=== PATIENT | female | born 1940 | race Caucasian/White ===

== ENCOUNTER 2017-07-21 14:29 | Outpatient (CLI) | payer OTHER | END 2017-07-21 19:55 | disposition home or self-care (01) | LOC: SMA 14:29 | PROVIDERS: ATTEND Family Medicine | DX: Z12.31 Encounter for screening mammogram for malignant neoplasm of breast (principal) | CPT/HCPCS: 77067 ==

== ENCOUNTER 2018-12-08 08:41 | Outpatient (CLI) | payer OTHER | END 2018-12-08 21:28 | disposition home or self-care (01) | LOC: SMA 08:41 | PROVIDERS: ATTEND Family Medicine | DX: Z12.31 Encounter for screening mammogram for malignant neoplasm of breast (principal) | CPT/HCPCS: 77067 ==